=== PATIENT | male | born 1945 | race Caucasian/White ===

== ENCOUNTER 2017-01-17 08:55 | Day surgery (SDC) | payer OTHER, MEDICARE ==
[2017-01-17] MEDS ORDERED: LIDOCAINE 1% 300 MG/30 ML SDV ONE (09:39)
[2017-01-17] MEDS ORDERED: LIDOCAINE 1% 300 MG/30 ML SDV IF ONE (09:45)
--- NOTE | 2017-01-17 11:46 | CPIP ---
[f rep st] INVASIVE CARDIAC PROCEDURE DATE OF PROCEDURE: 01/17/2017 PROCEDURE PERFORMED: Implantable loop recorder. INDICATION FOR PROCEDURE: Idiopathic CVA. PROCEDURE: After informed consent was obtained, the patient was brought to the cardiovascular [facility] suite. The 5th intercostal space, 2 cm left side from midline was marked for appropriate inser tion site. He was prepped and draped in a sterile fashion. Using 1% lidocaine, the surgical site w as anesthetized locally. Incision was made in the skin. The loop recorder device was tunneled unde r the skin with appropriate tract. Device was placed subcutaneously without difficulty. He tolerat ed the procedure well. Hemostasis was achieved. Steri-Strips were applied. Sterile dressing with Tegaderm was applied. The device was interrogated postprocedure, demonstrating normally functioning device with excellent capture of P-waves. He had no postoperative complications. Postoperative instructions were reviewed with the patient. PLAN: 1. Patient will be discharged home. 2. Patient lives 6 hours away and will arrange for surgical site wound check in 1 week with his [facility] physician back home. 3. Patient's device will be programmed to send data to our office. /[id number]/MODL
== END 2017-01-17 11:00 | disposition home or self-care (01) ==
LOC: FCATH 08:55
PROVIDERS: ATTEND Internal Medicine Cardiovascular Disease
PROC: 0JH60PZ Insertion of Cardiac Rhythm Related Device into Chest Subcutaneous Tissue and Fascia, Open Approach (ICD-10-PCS; principal; 2017-01-17)
DX: I63.9 Cerebral infarction, unspecified (principal)
CPT/HCPCS: 33282; C1764

== ENCOUNTER → 2018-09-20 | Outpatient (CLI) | payer OTHER, MEDICARE | LOC: BHFA 08:30 | PROVIDERS: ATTEND Internal Medicine Cardiovascular Disease | DX: I34.0 Nonrheumatic mitral (valve) insufficiency (principal) ==

== ENCOUNTER 2018-11-25 07:56 | Day surgery (SDC) | payer OTHER, MEDICARE ==
[2018-11-25] MEDS ORDERED: DIAZEPAM 5 MG TAB PO ONE (07:57)
[2018-11-25] MEDS ORDERED: NS 1,000 ML IV ONE (07:57)
[2018-11-25] MEDS ORDERED: diphenhydrAMINE 25 MG CAP PO ONE (07:57)
[2018-11-25] MEDS ORDERED: FAMOTIDINE 20 MG TAB PO ONE (07:57)
[2018-11-25] MEDS ORDERED: ASPIRIN EC 325 MG TAB PO ONE (07:57)
[2018-11-25 08:31] LABS: PLATELET COUNT 222 10^3/uL (150-400)
[2018-11-25 08:40] LABS: INR 1.04 (0.83-1.16); PROTIME(PATIENT) 13.2 SEC (12.0-15.0)
--- NOTE | 2018-11-25 09:29 | PDHPUP ---
History & Physical Update H&P update statement: This history and physical update is based on an assessment of the patient which was completed after admission or registration (within 24 hours), but prior to the surgery/procedure.73 year old male who presents for pre op LHC in anticipation of minimally invasive, robotic assisted mitral valve repair with Dr. Rowley on Sunday in the setting of MVP and severe MR. Risks and benefits of LHC discussed in detail. H&P update: H&P reviewed & patient examined, no change in patient's condition since H&P completed
--- NOTE | 2018-11-25 09:30 | PDPROPOC ---
Sedation Plan of Care Sedation Plan of Care: mental status noted, patient educated of risks, benefits , alternatives, patient can tolerate sedation ASA Classification: ASA 2 Planned drugs: fentanyl, midazolam Mallampati Score: Class 2 Mallampati Reference Image: Patient passed 3-3-2 rule?: Yes
[2018-11-25] MEDS ORDERED: fentaNYL 100 MCG/2 ML INJ ONE (09:33)
[2018-11-25] MEDS ORDERED: MIDAZOLAM 2 MG/2 ML VIAL ONE (09:33)
[2018-11-25] MEDS ORDERED: IOPAMIDOL (ISOVUE-370) 150 ML BTL IV ONE (09:33)
[2018-11-25] MEDS ORDERED: LIDOCAINE 1% 300 MG/30 ML SDV ONE (09:33)
[2018-11-25] MEDS ORDERED: NITROGLYCERIN 0.4 MG BTL SL PRN (11:25)
[2018-11-25] MEDS ORDERED: HYDROCODONE/APAP 5/325 TAB PO PRN (11:25)
[2018-11-25] MEDS ORDERED: ATROPINE SULFATE 1 MG/10 ML SYR IVP PRN (11:25)
[2018-11-25] MEDS ORDERED: ONDANSETRON 4 MG/2 ML VIAL IVP PRN (11:25)
[2018-11-25] MEDS ORDERED: OXYCODONE/APAP 5/325 TAB PO PRN (11:25)
[2018-11-25] MEDS ORDERED: NS 1,000 ML IV SCH (11:30)
--- NOTE | 2018-11-25 12:03 | CPIP ---
[f rep st] INVASIVE CARDIAC PROCEDURE DATE OF PROCEDURE: 11/25/2018 PROCEDURE PERFORMED: Diagnostic left heart catheterization. INDICATION FOR PROCEDURE: Preoperative left heart catheterization in anticipation of minimally invas sindi lateral thoracotomy and mitral valve repair with Dr. Rowley scheduled for this coming Sunday. DESCRIPTION OF PROCEDURE: After informed consent was obtained for diagnostic left heart catheterizat ion and possible percutaneous coronary intervention, the patient was brought to the cardiac catheteri zation lab where he was prepped and draped in sterile fashion. Using 1% lidocaine, the right groin w as anesthetized. Using the micropuncture and modified Seldinger technique, 6-Swiss catheter was placed into the right common femoral artery without complications. A JL4 catheter was attempted to cannulate left main un successfully. Multiple catheters were used including JL3.5, JL4.5, JL5, an AL1 catheter. Ultimately, left main was cannulated with an AL1 and demonstrating anomalous left coronary artery com ing off the origin of the right coronary artery. AL1 catheter was exchanged over a guidewire for a JR4 catheter. JR4 catheter was used to take images of the right coronary anatomy in multiple projections. The JR4 catheter was removed over a guidewir e. Angled pigtail catheter was used to cross the aortic valve. Left ventriculogram was performed. LVEDP was assessed. Aortic valve gradient was assessed on pull-back. FINDINGS: 1. 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 There is no evidence of cor onary disease within the left main. There is some ostial narrowing of what would be the circumflex v essel of approximately 30% to 40%. Some mild luminal irregularities in the proximal LAD. 2. The right coronary artery is a large caliber dominant vessel. There is a 70% to 80% narrowing in the proximal right coronary artery. CONCLUSIONS: 1. 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 2. Non-flow limiting coronary disease within the anomalous left coronary system. 3. Single-vessel disease within the dominant right coronary artery of 70% to 80% proximal stenosis. PLAN: Plan for CT-A of the coronary arteries to determine the route of anomalous left main. Dependi ng on whether left main courses between the pulmonary artery and the aorta, will guide further manage ment. /[id number]/MODL
[2018-11-25] MEDS ORDERED: SODIUM CL NASAL 45 ML BTL EACHNARE PRN (14:51)
--- NOTE | 2018-11-25 16:18 | CPEKG ---
Test Reason : OPEN Blood Pressure : / mmHG Vent. Rate : 080 BPM Atrial Rate : 078 BPM P-R Int : 174 ms QRS Dur : 092 ms QT Int : 372 ms P-R-T Axes : 072 026 072 degrees QTc Int : 430 ms Sinus rhythm Left ventricular hypertrophy Confirmed by Hellen Bains ([id number]) on 11/25/2018 4:18:06 PM Referred By: Reed Kwan Confirmed By:Hellen Bains
== END 2018-11-25 18:25 | disposition home or self-care (01) ==
LOC: FCATH 07:56
PROVIDERS: ATTEND Internal Medicine Cardiovascular Disease
PROC: B2151ZZ Fluoroscopy of Left Heart using Low Osmolar Contrast (ICD-10-PCS; principal; 2018-11-25)
PROC: 4A023N7 Measurement of Cardiac Sampling and Pressure, Left Heart, Percutaneous Approach (ICD-10-PCS; principal; 2018-11-25)
PROC: B2111ZZ Fluoroscopy of Multiple Coronary Arteries using Low Osmolar Contrast (ICD-10-PCS; principal; 2018-11-25)
DX: Z01.810 Encounter for preprocedural cardiovascular examination (principal); I34.2 Nonrheumatic mitral (valve) stenosis; I34.0 Nonrheumatic mitral (valve) insufficiency; I25.10 Atherosclerotic heart disease of native coronary artery without angina pectoris; I77.9 Disorder of arteries and arterioles, unspecified; I27.20 Pulmonary hypertension, unspecified; Z86.73 Personal history of transient ischemic attack (TIA), and cerebral infarction without residual deficits; I42.8 Other cardiomyopathies
CPT/HCPCS: J1644; J2250; J3010; Q9967

== ENCOUNTER → 2018-11-26 | Outpatient (CLI) | payer OTHER, MEDICARE ==
[~2018-11-26] MED LIST: IOPAMIDOL (ISOVUE-370) 150 ML BTL IV ONE; NITROGLYCERIN 0.4 MG BTL SL ONE
== END ==
LOC: FIMAGING 07:00
PROVIDERS: ATTEND Internal Medicine Cardiovascular Disease
DX: I25.10 Atherosclerotic heart disease of native coronary artery without angina pectoris (principal); Q24.5 Malformation of coronary vessels
CPT/HCPCS: 75574; Q9967

== ENCOUNTER 2018-11-29 10:00 | Inpatient (IN) | payer OTHER, MEDICARE ==
--- NOTE | 2018-12-16 15:35 | PDANEPAE ---
ANE History of Present Illness MR ANE Past Medical History - Cardiovascular History Hx Hypertension: Yes Hx Arrhythmias: Yes Hx Chest Pain: No Hx Coronary Artery / Peripheral Vascular Disease: Yes Hx CHF / Valvular Disease: Yes Hx Palpitations: No Cardiovascular History Comment: CAD. dyslipidemia. mitral regurgitation. mitral valve prolapse. vtach. pst. followed by [facility] - Pulmonary History Hx COPD: No Hx Asthma/Reactive Airway Disease: No Hx Recent Upper Respiratory Infection: No Hx Oxygen in Use at Home: No Hx Sleep Apnea: No Sleep Apnea Screening Result - Last Documented: Positive Pulmonary History Comment: james triggers - Neurologic History Hx Cerebrovascular Accident: No Hx Seizures: No Hx Dementia: No Neurologic History Comment: occipital stroke 02/2016 - Endocrine History Hx Diabetes: No Hypothyroid: No Hyperthyroid: No Obesity: no - Renal History Hx Renal Disorders: No - Liver History Hx Hepatic Disorders: No - Neurological & Psychiatric Hx Hx Neurological and Psychiatric Disorders: No - Cancer History Hx Cancer: No - Congenital Disorder History Hx Congenital Disorders: No - GI History GERD: no Hx Gastrointestinal Disorders: No - Other Health History Other Health History: wears glasses - Chronic Pain History Chronic Pain: No - Surgical History Prior Surgeries: 01/17/2017 loop recorder placed ANE Review of Systems Review of systems is: negative Review of Systems: - Exercise capacity METS (RN): 5 METS ANE Patient History - Allergies Allergies/Adverse Reactions: No Known Allergies Allergy (Verified 11/18/18 09:33) - Home Medications Home medications: home medication list seen and reviewed Home Medications: Aspirin [Aspirin 81mg (*)] 81 mg PO DAILY 01/17/17 [Last Taken 11/23/18] Atorvastatin Calcium [Lipitor 40 mg (*)] 40 mg PO DAILY 11/13/18 [Last Taken ] Metoprolol Succinate Xr [Toprol Xl 25 mg (*)] 25 mg PO DAILY 11/13/18 [Last Taken 11/24/18] - NPO status NPO Status: no food or drink >8 hours - Anes Hx Anes Hx: no prior problems - Smoking Hx Smoking Status: Former smoker - Family Anes Hx Family Anes Hx: none Family Hx Anesthesia Complications: none ANE Labs/Vital Signs - Vital Signs Height: 182.88 cm Weight: 74.8 kg ANE Physical Exam - Airway Neck exam: FROM Mallampati Score: Class 2 Mouth exam: normal dental/mouth exam - Pulmonary Pulmonary: no respiratory distress, clear to auscultation - Cardiovascular Cardiovascular: regular rate and rhythym, no murmur, rub, or gallop - ASA Status ASA Status: IV ANE Anesthesia Plan Anesthesia Plan: general endotracheal anesthesia Lines/Monitors: arterial line, central line, TAWANDA Specialized Airway: double lumen tube
[2018-12-17] MEDS ORDERED: DOBUTamine/DEXTROSE 250 ML IV ONE (06:00)
[2018-12-17] MEDS ORDERED: NOREPINEPHRINE BITARTRATE 16 MG in NS 250 ML IV ONE (06:00)
[2018-12-17] MEDS ORDERED: CARDIOPLEGIC SOLUTION 1,052.8 ML PF ONE (06:00)
[2018-12-17] MEDS ORDERED: INSULIN REGULAR HUMAN 100 UNIT in NS 100 ML IV ONE (06:00)
[2018-12-17] MEDS ORDERED: MANNITOL 25% 12.5 GM/50 ML VIAL IVP ONE (06:00)
[2018-12-17] MEDS ORDERED: PHENYLEPHRINE HCL 50 MG in NS 250 ML IV ONE (06:00)
[2018-12-17] MEDS ORDERED: LIDOCAINE 1% 2 ML INJ ID PRN (06:02)
[2018-12-17] MEDS ORDERED: niCARdipine/NACL 200 ML IV ONE (06:02)
[2018-12-17] MEDS ORDERED: AMINOCAPROIC ACID 5 GM/20 ML VIAL IV ONE (06:02)
[2018-12-17] MEDS ORDERED: ceFAZolin 2 GM/DEXTROSE 100 ML IV ONE (06:02)
[2018-12-17] MEDS ORDERED: CITRATE DEXTROSE SOLN 500 ML BAG MISC ONE (06:02)
[2018-12-17] MEDS ORDERED: LR 1,000 ML IV ONE (06:03)
[2018-12-17] MEDS ORDERED: CALCIUM CHLORIDE 1 GM/10 ML INJ ONE ×3 (06:30→06:37)
[2018-12-17] MEDS ORDERED: PROTAMINE SULFATE 50 MG/5 ML VIAL IVP ONE (06:33)
[2018-12-17] MEDS ORDERED: MILRINONE/DEXTROSE/100 ML BAG IV ONE (06:34)
[2018-12-17] MEDS: MUPIROCIN 2% 22 GM OINT NS SCH ×3 (06:34→21:01)
[2018-12-17] MEDS ORDERED: AMINOCAPROIC ACID 5 GM/20 ML VIAL ONE ×2 (06:34→06:38)
[2018-12-17] MEDS ORDERED: niCARdipine/NACL/200 ML BAG IV ONE (06:35)
[2018-12-17] MEDS ORDERED: NA BICARBONATE 50 MEQ/50 ML VIAL ONE ×3 (06:35→14:47)
[2018-12-17] MEDS ORDERED: HEPARIN 10,000 UNIT/10 ML MDV (1,000 UNIT/ML) ONE ×5 (06:35→07:13)
[2018-12-17] MEDS ORDERED: DOPamine/DEXTROSE 400 MG/250 ML BAG IV ONE (06:36)
[2018-12-17] MEDS ORDERED: AMIODARONE HCL 150 MG/3 ML VIAL ONE ×2 (06:36→06:39)
[2018-12-17] MEDS ORDERED: ceFAZolin 1 GM VIAL ONE (06:36)
[2018-12-17] MEDS ORDERED: ADENOSINE 6 MG/2 ML VIAL ONE (06:36)
[2018-12-17] MEDS ORDERED: ALBUMIN 5% 250 ML BOTTLE IV ONE (06:37)
[2018-12-17] MEDS ORDERED: NITROGLYCERIN/D5W 50 MG/250 ML BOTTLE IV ONE (06:37)
[2018-12-17] MEDS ORDERED: LIDOCAINE 2% 100 MG/5 ML SYR ONE (06:38)
[2018-12-17] MEDS ORDERED: CITRATE DEXTROSE SOLN 500 ML BAG ONE (06:38)
[2018-12-17] MEDS ORDERED: MAGNESIUM SULFATE 1 GM/2 ML VIAL ONE (06:39)
[2018-12-17] MEDS ORDERED: methylPREDNISolone SOD SUCC 1 GM/8 ML VIAL ONE (06:39)
--- NOTE | 2018-12-17 06:54 | PDGENHP ---
History and Physical - Chief Complaint elective cardiac surgery - History of Present Illness This is a pleasant 73M with severe MR, LAE, pHTN, and LV dilatation who presents today for elective MVR/R. He previously was evaluated by Dr. Rowley in clinic on 11/05/18. Since then, he underwent a cardiac catheterization which demonstrated anomalous left coronary system and single-vessel CAD within the dominant RCA at 70%-80%. As stated before, he had a cryptogenic CVA with residual visual deficits. Requires glasses to read. [place] No unexpected illnesses, hospitalizations, or other changes to his health since being seen in October. History Information - Allergies/Home Medication List Allergies/Adverse Reactions: No Known Allergies Allergy (Verified 11/18/18 09:33) Home Medications: Aspirin [Aspirin 81mg (*)] 81 mg PO DAILY 01/17/17 [Last Taken 12/16/18] Atorvastatin Calcium [Lipitor 40 mg (*)] 40 mg PO DAILY 11/13/18 [Last Taken 01/29] Metoprolol Succinate Xr [Toprol Xl 25 mg (*)] 25 mg PO DAILY 11/13/18 [Last Taken 11/24/18] I have personally reviewed and updated: family history, medical history, social history, surgical history - Past Medical History coronary artery disease, CVA - Surgical History Reports: no pertinent surgical hx - Social History Smoking Status: Former smoker Alcohol Use: Occasionally Review of Systems Review of Systems: ROS: 2-9 pt reviewed & negative except for what was stated in HPI & below Physical Exam Physical Exam: Temp Pulse Resp BP Pulse Ox 36.7 C 64 18 115/62 95 12/17/18 06:14 12/17/18 06:14 12/17/18 06:14 12/17/18 06:14 12/17/18 06:14 Constitutional: no apparent distress, appears nourished Eyes: icteric sclera, pale conjunctiva Ears, Nose, Mouth, Throat: moist mucous membranes, hearing normal, ears appear normal Cardiovascular: regular rate and rhythym, systolic murmur Respiratory: no respiratory distress, no rales or rhonchi Gastrointestinal: soft, non-tender abdomen Skin: warm, normal color Neurologic: AAOx3 Psychiatric: interacting appropriately Lab Data & Imaging Review Imaging Review: [facility] 11/25/18 FINDINGS: 1. 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 There is no evidence of coronary disease within the left main. There is some ostial narrowing of what would be the circumflex vessel of approximately 30% to 40%. Some mild luminal irregularities in the proximal LAD. 2. The right coronary artery is a large caliber dominant vessel. There is a 70 % to 80% narrowing in the proximal right coronary artery. CARDIAC CT 11/26/18 Impression: 1. Anomalous coronary artery system with single coronary artery supply off the right anterior cusp. 2. Moderate to severe stenosis proximal to mid RCA secondary to noncalcified hypodense at risk plaque measuring about 70-75%. 3. 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 4. Mild calcified plaque proximal diagonal branches without significant stenosis. All measurements of stenoses are based on NASCET criteria. CUS 11/25/18 No evidence of flow-limiting carotid stenosis CXR 11/25/18 WNL TTE 09/20/18 Mild aortic valve regurgitation is present. Moderate tricuspid regurgitation is present. Right Ventricular systolic pressure is measured at 53 mmHg. Normal global systolic LV function. EF is 66 %. No regional wall motion abnormality. Normal diastolic LV function. The left atrium is moderately dilated. The right atrium is mildly dilated. There is mild thickening of the mitral valve leaflets. Mild mitral annular calcification. There is severe prolapse of the posterior leaflet of the mitral valve. Severe mitral valve regurgitation is present. There is flow reversal in the pulmonary veins consistent with significant mitral regurgitation. 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 Kwan
[2018-12-17] MEDS ORDERED: LIDOCAINE 2% 5 ML SDV ONE (07:12)
[2018-12-17] MEDS ORDERED: fentaNYL 250 MCG/5 ML INJ ONE (07:12)
[2018-12-17] MEDS ORDERED: ROCURONIUM 100 MG/10 ML VIAL ONE (07:12)
[2018-12-17] MEDS ORDERED: PROPOFOL/EMULSION 500 MG/50 ML BOTTLE IV ONE (07:12)
[2018-12-17] MEDS ORDERED: ROCURONIUM 50 MG/5 ML VIAL ONE (09:37)
[2018-12-17] MEDS ORDERED: PHENYLEPHRINE HCL 100 MCG/ML SYR ONE (11:49)
[2018-12-17] MEDS ORDERED: NALOXONE HCL 0.4 MG/ML INJ IVP PRN (11:57)
[2018-12-17] MEDS ORDERED: PHENYLEPHRINE HCL 100 MCG/ML SYR IVP PRN (12:08)
[2018-12-17] MEDS ORDERED: fentaNYL 100 MCG/2 ML INJ IVP PRN ×2 (12:08→12:30)
[2018-12-17] MEDS ORDERED: DIAZEPAM 10 MG/2 ML SYR IVP PRN (12:08)
[2018-12-17] MEDS ORDERED: epHEDrine SULFATE 10 MG/ML SYR IVP PRN (12:08)
--- NOTE | 2018-12-17 12:11 | POSTANESTH ---
Post Anesthetic Evaluation Cardiovascular Status: Normal, Stable Respiratory Status: Normal, Stable, Requires Airway Assist Level of Consciousness/Mental Status: Unconscious Pain Control: Adequate, Prn Tx Ordered Nausea/Vomiting Control: Adequate, Prn Tx Ordered Complications Possibly Related to Anesthesia: None Noted
[2018-12-17] MEDS ORDERED: ONDANSETRON 4 MG/2 ML VIAL ONE (12:14)
--- NOTE | 2018-12-17 12:26 | POSTOPPROG ---
Post Op Note Date of Operation: 12/17/18 Surgeon: Rom Rowley Assistant: Tyrell Solorzano PAC Anesthesiologist: Katelynn Anesthesia: GET(General Endotracheal) Pre-op Diagnosis: severe MR Post-op Diagnosis: same Procedure: robotic assisted MVRepair (p2 resection, leaflet plasty, annuloplasty 28mm) Findings: P2 torn Inf/Abcess present in the surg proc area at time of surgery?: No Depth: Organ Space EBL: 100-500 Drains: Other (Right chest tube to -20 suction) Specimen(s): p2 of mitral valve
[2018-12-17] MEDS ORDERED: PANTOPRAZOLE SODIUM 40 MG VIAL IVP ONE (12:30)
[2018-12-17] MEDS ORDERED: LACTULOSE 20 GM/30 ML UDCUP PO PRN (12:30)
[2018-12-17] MEDS ORDERED: MAGNESIUM HYDROXIDE 30 ML UDCUP PO PRN (12:30)
[2018-12-17] MEDS ORDERED: ACETAMINOPHEN 325 MG TAB PO PRN (12:30)
[2018-12-17] MEDS ORDERED: ALBUMIN 5% 250 ML IV PRN (12:30)
[2018-12-17] MEDS ORDERED: INSULIN REGULAR HUMAN 100 UNIT in NS 100 ML IV SCH (12:30)
[2018-12-17] MEDS ORDERED: NOREPINEPHRINE BITARTRATE 16 MG in NS 250 ML IV SCH (12:30)
[2018-12-17] MEDS ORDERED: HYDROCODONE/APAP 5/325 TAB PO PRN (12:30)
[2018-12-17] MEDS ORDERED: BISACODYL 10 MG SUPP PR PRN (12:30)
[2018-12-17] MEDS ORDERED: ONDANSETRON DISINTEGRATING 4 MG TAB PO PRN (12:30)
[2018-12-17] MEDS ORDERED: METOCLOPRAMIDE 10 MG/2 ML VIAL IVP PRN (12:30)
[2018-12-17] MEDS ORDERED: D50W 25 GM/50 ML SYR IVP PRN (12:30)
[2018-12-17] MEDS ORDERED: POLYETHYLENE GLYCOL 3350 17 GM PKT PO PRN (12:30)
[2018-12-17] MEDS ORDERED: ONDANSETRON 4 MG/2 ML VIAL IVP PRN (12:30)
[2018-12-17] MEDS ORDERED: MEPERIDINE 25 MG/0.5 ML AMP IVP PRN (12:30)
[2018-12-17] MEDS ORDERED: NS 1,000 ML IV SCH (12:30)
[2018-12-17] MEDS ORDERED: SODIUM CL NASAL 45 ML BTL EACHNARE PRN (12:30)
[2018-12-17] MEDS ORDERED: ACETAMINOPHEN 650 MG SUPP PR PRN (12:30)
[2018-12-17] MEDS ORDERED: POTASSIUM Cl (KCl) 50 ML IV PRN (12:30)
[2018-12-17] MEDS ORDERED: PROPOFOL/EMULSION 100 ML IV SCH (13:30)
--- NOTE | 2018-12-17 13:49 | PDMN ---
Medical Necessity Medical necessity: [facility] IP only surgery; cpt 54361 MVR
[2018-12-17] MEDS: ceFAZolin 2 GM/DEXTROSE 100 ML IV SCH ×2 (14:16→21:57)
--- NOTE | 2018-12-17 16:43 | CPEKG ---
Test Reason : OPEN Blood Pressure : / mmHG Vent. Rate : 061 BPM Atrial Rate : 061 BPM P-R Int : 208 ms QRS Dur : 079 ms QT Int : 431 ms P-R-T Axes : 026 003 036 degrees QTc Int : 434 ms Sinus rhythm Abnormal R-wave progression, early transition Confirmed by Gus Greer ([id number]) on 12/17/2018 4:42:37 PM Referred By: Rom Rowley Confirmed By:Gus Greer
--- NOTE | 2018-12-17 17:23 | GCON ---
[f rep st] CONSULTATION PULMONARY/CRITICAL CARE CONSULTATION DATE OF CONSULTATION: 12/17/2018 REFERRING PHYSICIAN: Rom Rowley MD REASON FOR REFERRAL: Evaluation and management of respiratory failure, pulmonary hypertension, and h ypotension. HISTORY: The patient is a 73-year-old male with a history of severe MR with left atrial enlargement and pulmonary hypertension along with LV dilation, who underwent an elective robotic MVR repair today . Preoperatively, he had a cardiac catheterization, which demonstrated an anomalous left coronary ar sarkis system single-vessel CAD in a dominant RCA, with a 70% to 80% stenosis. It was elected to proce ed with surgery, with stenting postoperatively. His intraoperative course was unremarkable. He was hypotensive on arrival in the ICU, with a systolic blood pressure in the 70s. He was intubated at th e time of initial evaluation postoperatively. PAST MEDICAL HISTORY: 1. CVA. The patient has residual right visual field cut. 2. Coronary artery disease. 3. Pulmonary hypertension. MEDICATIONS AT TIME OF ADMISSION: Include aspirin, atorvastatin, and metoprolol. SOCIAL HISTORY: The patient is a former smoker. He drinks alcohol occasionally. He lives in the [facility]. FAMILY HISTORY: Unremarkable. REVIEW OF SYSTEMS: Unobtainable. PHYSICAL EXAMINATION: GENERAL: The patient is intubated and sedated. VITAL SIGNS: Systolic blood pressure is in the 70s on initial presentation. Heart rate is 80. His temperature is 36 degrees. C [employer]ER is 3, and pulmonary artery pressures are 36/12. HEENT: Normocephalic and atraumatic. Eyes with no icterus. NECK: No JVD. Trachea is midline. CHEST: Clear to auscultation. CARDIAC: Regular r ate and rhythm without murmur. ABDOMEN: Soft and nontender. Bowel sounds are present. EXTREMITIES : No clubbing, cyanosis, or edema. NEUROLOGICAL: The patient is intubated and sedated. LABORATORY: Chemistry group is unremarkable. Glucose is 127. Lactic acid is 1.7. Hemoglobin is 12 .9. Blood gas shows a pH of 7.32 with a pO2 of 123, a CO2 of 43, and a bicarbonate of 22 on 100% oxy gen. A chest x-ray shows some borderline cardiomegaly with some atelectasis in both bases. The endo tracheal tube is appropriately placed. Images are reviewed by me. ASSESSMENT: 1. Status post mitral valve repair. The patient's intraoperative course and repair were unremarkabl e. 2. Hypotension. This is likely due to hypovolemia and vasoplegia, with a low central venous pressur e. The patient is currently receiving blood products and albumin, and received a small dose of pheny lephrine by Anesthesiology at the bedside. 3. Pulmonary hypertension. The patient has a history of pulmonary hypertension, but this is likely due to the patient's mitral valve disease. His pulmonary artery pressures are normal here postoperat ively, although he is somewhat hypotensive. 4. Coronary artery disease. The patient has a 70% to 80% right coronary artery lesion. We anticipa te that this will be stented postoperatively. 5. History of a cerebrovascular accident. RECOMMENDATIONS: 1. Use norepinephrine to help maintain blood pressure. Fluids will be given until the blood pressur e improves, as long as the CVP remains less than 8. 2. Wean and extubate per protocol. /[id number]/MODL
[2018-12-18 04:13] LABS: PLATELET COUNT 106 10^3/uL (150-400)
[2018-12-18] MEDS: ceFAZolin 2 GM/DEXTROSE 100 ML IV SCH ×3 (05:53→21:30)
--- NOTE | 2018-12-18 08:01 | SOAPPROG ---
SOAP Progress Note Assessment/Plan: POD #1 s/p robotic-assisted MVRepair (28mm annuloplasty ring, p2 resection, sliding leaflet plasty) Myxomatous severe mitral valve regurgitation s/p MVRepair -Norepi immediately postop for vasoplegia -pre-op EF 65% w LAE/pHTN/LV dilatation and moderate TR -anticoagulation with full dose ASA alone -routine TTE after addressing RCA lesion Single vessel right coronary artery disease w anomalous left coronary artery - planned intervention this hospitalization with Dr. Kwan/Dr. 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 Minimal pain. Objective: GEN: NAD, lying in bed HEENT: NCAT, MMM Cardiac: s1s2, no m/r/g Resp: CTAB, no wheezes Extremities: trace edema Vital Signs Temp Pulse Resp BP Pulse Ox 37.2 C 72 20 128/48 H 92 12/18/18 07:23 12/18/18 07:23 12/18/18 07:23 12/18/18 07:23 12/18/18 07:23 Laboratory Results 12/18/18 04:05 12/18/18 04:05 12/17/18 12/18/18 12/19/18 05:59 05:59 05:59 Intake Total 2597 Output Total 1340 Balance 1257 CXR - WNL ICD10 Worksheet Patient Problems: Problems Problem Status Onset Acute blood loss anemia Acute S/P MVR (mitral valve repair) Acute Anomalous origin of left coronary artery Chronic CAD in barrow artery Chronic Dyslipidemia Chronic History of stroke Chronic Myxomatous mitral valve regurgitation Chronic
[2018-12-18] MEDS ORDERED: traMADol 50 MG TAB PO PRN (08:41)
[2018-12-18] MEDS ORDERED: ASPIRIN 81 MG CHEWABLE TAB PO SCH (09:00)
[2018-12-18] MEDS: MUPIROCIN 2% 22 GM OINT NS SCH ×2 (09:17→20:35)
[2018-12-18] MEDS: METOPROLOL TARTRATE 25 MG TAB PO SCH ×2 (09:17→20:34)
[2018-12-18] MEDS: CEPACOL LOZENGE PO PRN ×2 (10:22→19:09)
[2018-12-18] MEDS: PANTOPRAZOLE SODIUM 40 MG TAB PO SCH (12:04)
[2018-12-18] MEDS: ASPIRIN 81 MG CHEWABLE TAB PO SCH (12:04)
--- NOTE | 2018-12-18 17:11 | GOP ---
[f rep st] OPERATIVE REPORT DATE OF OPERATION: 12/17/2018 SURGEON: Rom Rowley MD HEAD WAITER/WAITRESS: Clemencia Gomez PREOPERATIVE DIAGNOSIS: Severe mitral regurgitation. POSTOPERATIVE DIAGNOSIS: Severe mitral regurgitation. PROCEDURE PERFORMED: Robotic assisted mitral valve repair with resection of the P2 portion of the po sterior leaflet, reconstruction and annuloplasty with a 28 mm Physio Ring. FINDINGS: The pericardial space was free. The aorta was soft. There were multiple torn cords to a large P2 segment of the posterior leaflet. The anterior leaflet was normal. INDICATIONS: This 73-year-old gentleman has been experiencing progressive exercise intolerance and o n examination was found to have a heart murmur. This prompted echocardiography revealing severe mitr al regurgitation. Left ventricular function is moderately reduced. The ventricle is slightly dilate d, and coronary angiography reveals a 70% right coronary lesion. He was recommended to undergo rafi l valve repair. It is anticipated in the postoperative period he will undergo a stent placement of t he right coronary artery. We elected to do this postoperatively to avoid the attendant risk of bleed ing associated with antiplatelet therapy for a stent. DESCRIPTION OF PROCEDURE: Patient was taken to the operating room, placed on the operating table in supine position. After induction of general anesthesia and double-lumen endotracheal tube intubation , patient was prepped and draped sterilely. A transesophageal echo probe was also placed. The patie nt was positioned with the right chest partially elevated. We began by cutting down and exposing the right common femoral artery and vein. We also opened a small utility incision about 4 cm in length in the 4th interspace on the right chest. Once this utility port had been created, we then placed th e 3 arms for the robot through the chest wall and then accessed the right subclavian vein with a need le and a wire. At this point, the patient was heparinized. We placed a 17 mm Bio-Medicus cannula th rough the right subclavian vein into the superior vena cava, and this was sutured into place and used for superior vena cava drainage. In the groin then, we sewed an 8 mm cannula graft end-to-side to t he right common femoral artery, and a pursestring was placed in the right common femoral vein. We th en over a wire placed a long venous cannula into the right atrium. At this point, the robotic system was brought up onto the field and docked. Cardiopulmonary bypass was instituted. The pericardium w as opened. Antegrade cardioplegia catheter was placed. Next, the transthoracic cross-clamp was applied, and the heart was arrested with 1 L of [place] solu tion. There was excellent and prompt arrest. The left atrium was then opened, and the valve was ins pected. The left atrium was noted to be rather enlarged. The posterior leaflet as described above. We then did a triangular resection of the posterior leaflet and reconstructed it with a 4-0 [place] suture. The ring was sized to a 28 mm ring. Sutures were placed around the anulus, and the ring was seated without difficulty. The left atrium was then closed, and the cross-clamp was removed. A 28- Belarusian chest tube was placed on the right side. The patient was from cardiopulmonary bypas s without difficulty, and the post pump transesophageal echo reveals no residual mitral regurgitation . The protamine was administered, and the patient was decannulated. The artery was repaired with a small residual piece of [place] on the top of the artery. The vein was repaired with a pursestring suture. Once hemostasis had been achieved and protamine had been administered, the ribs were reappro ximated with #1 pericostal sutures, and the subcutaneous musculature and skin were closed with runnin g Vicryl suture. The patient tolerated the procedure well. /[id number]/MODL
--- NOTE | 2018-12-18 17:38 | PDCARPN ---
Cardiology Progress Note Assessment/Plan: Patient underwent robotic mitral valve repair yesterday. Is recovering uneventfully except for some residual hoarseness. He has a high grade midRCA stenosis. Plan is for PCI tomorrow to complete his hybrid CV surgery/ interventional cardiology procedure. Discussed technical details/risks with the patient and his . Right radial approach will be used. 12/18/18 17:35 Subjective: Still hoarse after MV repair yesterday. Reviewed/Discussed With: family Objective: Vital Signs (8 Hrs) Temp Pulse Resp BP Pulse Ox 12/18/18 15:32 37.4 C 70 20 129/67 H 91 L 12/18/18 13:45 37.0 C 68 16 129/68 H 97 12/18/18 11:58 37.1 C 70 20 126/61 H 97 Intake/Output (24 Hrs) 12/17/18 12/18/18 12/19/18 05:59 05:59 05:59 Intake Total 2597 Output Total 1340 Balance 1257 Intake: Oral (ml) 500 IV Intake (ml) 1000 IV Infused (ml) 1097 Insulin Regular Human 100 21 unit In Ns 100 ml @ Per Protocol IV CONT LORRAINE Rx#: [id number] Norepinephrine Bitartrate 40 16 mg In Ns 250 ml @ As Directed IV CONT LORRAINE Rx#: [id number] Ns 1,000 ml @ 25 mls/hr 1036 IV CONT LORRAINE Rx#: [id number] Output: Urine (ml) 1010 Catheter 1010 Chest Tube Output (ml) 330 Right Pleural 330 Other: Weight 76.067 kg Result Diagrams: 12/18/18 04:05 12/18/18 04:05 - Physical Exam Constitutional: no apparent distress Eyes: anicteric sclera Ears, Nose, Mouth, Throat: moist mucous membranes Cardiovascular: regular rate and rhythm, no murmurs Respiratory: clear to auscultate bilat Gastrointestinal: normoactive bowel sounds, no tenderness, no masses Skin: no edema Neurologic: AAOx3 Psychiatric: not anxious ICD10 Worksheet Patient Problems: Problems Problem Status Onset Acute blood loss anemia Acute S/P MVR (mitral valve repair) Acute Anomalous origin of left coronary artery Chronic CAD in [place] artery Chronic Dyslipidemia Chronic History of stroke Chronic Myxomatous mitral valve regurgitation Chronic
[2018-12-18] MEDS: SENNOSIDES/DOCUSATE SODIUM TAB PO SCH (20:33)
[2018-12-19 03:53] LABS: PLATELET COUNT 97 10^3/uL (150-400)
[2018-12-19] MEDS ORDERED: diphenhydrAMINE 25 MG CAP PO ONE ×2 (06:00→09:30)
[2018-12-19] MEDS ORDERED: DIAZEPAM 5 MG TAB PO ONE ×2 (06:00→09:30)
[2018-12-19] MEDS ORDERED: FAMOTIDINE 20 MG TAB PO ONE ×2 (06:00→09:30)
--- NOTE | 2018-12-19 08:02 | SOAPPROG ---
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 Change BB to home Toprol starting tomorrow IV Diuresis today CT too much to pull Routine TTE tomorrow Anticipate discharge Sunday Subjective: No pain Objective: Vital Signs Temp Pulse Resp BP Pulse Ox 36.9 C 84 14 148/72 H 92 12/19/18 03:33 12/19/18 03:33 12/19/18 03:33 12/19/18 03:33 12/19/18 03:33 Laboratory Results 12/19/18 03:45 12/19/18 03:45 12/18/18 12/19/18 12/20/18 05:59 05:59 05:59 Intake Total 2597 340 Output Total 1340 1310 Balance 1257 -970 Objective: GEN: NAD, lying in bed HEENT: NCAT, MMM Cardiac: s1s2, no m/r/g Resp: CTAB, no wheezes Extremities: trace edema CT: light red, 460cc/24 hours ICD10 Worksheet Patient Problems: Problems Problem Status Onset Acute blood loss anemia Acute S/P MVR (mitral valve repair) Acute Anomalous origin of left coronary artery Chronic CAD in [place] artery Chronic Dyslipidemia Chronic History of stroke Chronic Myxomatous mitral valve regurgitation Chronic
[2018-12-19] MEDS ORDERED: FUROSEMIDE 40 MG/4 ML VIAL IVP ONE (08:27)
--- NOTE | 2018-12-19 08:59 | ASMTCMCOM ---
CM Note CM Note Notes: Patient admitted for MVR. He is POD #1. 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 He lives independently with his in [place]. They plan to return home, hopefully Sunday. He may need home O2 and some DME, which is going to obtain. No CM needs anticipated. Date Signed: 12/19/2018 08:58 AM Electronically Signed By:Janna Flores RN
[2018-12-19] MEDS: SENNOSIDES/DOCUSATE SODIUM TAB PO SCH ×2 (09:08→21:11)
[2018-12-19] MEDS: METOPROLOL TARTRATE 25 MG TAB PO SCH (09:18)
[2018-12-19] MEDS: MUPIROCIN 2% 22 GM OINT NS SCH (09:20)
[2018-12-19] MEDS: ASPIRIN 81 MG CHEWABLE TAB PO SCH (09:20)
[2018-12-19] MEDS: PANTOPRAZOLE SODIUM 40 MG TAB PO SCH (09:34)
[2018-12-19] MEDS ORDERED: LIDOCAINE 1% 300 MG/30 ML SDV ONE (10:51)
[2018-12-19] MEDS ORDERED: fentaNYL 100 MCG/2 ML INJ ONE (10:51)
[2018-12-19] MEDS ORDERED: MIDAZOLAM 2 MG/2 ML VIAL ONE (10:51)
[2018-12-19] MEDS ORDERED: HEPARIN 10,000 UNIT/10 ML MDV (1,000 UNIT/ML) ONE (10:52)
[2018-12-19] MEDS ORDERED: IOPAMIDOL (ISOVUE-370) 150 ML BTL IV ONE (10:52)
[2018-12-19] MEDS ORDERED: VERAPAMIL 5 MG/2 ML VIAL ONE (10:52)
[2018-12-19] MEDS ORDERED: CLOPIDOGREL BISULFATE 75 MG TAB ONE (11:02)
[2018-12-19] MEDS ORDERED: BIVALIRUDIN 250 MG/5 ML VIAL IV ONE (11:33)
[2018-12-19] MEDS ORDERED: ATROPINE SULFATE 1 MG/10 ML SYR IVP PRN (11:53)
[2018-12-19] MEDS ORDERED: TEMAZEPAM 15 MG CAP PO PRN (11:53)
[2018-12-19] MEDS ORDERED: NITROGLYCERIN 0.4 MG BTL SL PRN (11:53)
[2018-12-19] MEDS ORDERED: CLOPIDOGREL BISULFATE 75 MG TAB PO ONE (11:53)
--- NOTE | 2018-12-19 12:02 | PDDXCAT ---
Diagnostic Cath Note - . Date: 12/19/18 Publication Designer: Nolan Indication: other (High-grade mid-RCA lesion; now s/p robotic MV repair on 2018.) - Procedure Access: right wrist - Materials Left Heart Cath size: 6F Complications: None Estimated blood loss: <50ml Closure method: TR Band Assessment: Successful PCI of the proximal to mid RCA using a single drug coated stent. Intervention: The patient underwent robotic mitral valve repair earlier this week. His preoperative cardiac catheterization demonstrated a high-grade mid-RCA lesion. The left coronary system was anomalous but had no significant atherosclerosis and was not intra arterial between the aorta and pulmonary artery by CTA. He is now brought back for completion of his hybrid procedure with a PCI of the RCA. The patient received intravenous Angiomax. A 6 Wolof Hockey-Stick I guide catheter was advanced to the RCA ostium. Angiography revealed a complex, high- grade stenosis of at least 70% in the mid-RCA. There was moderate proximal disease. An Intuition guidewire was advanced to the distal RCA. Pre- dilatation of the target lesion was performed using a 3.0 x 12 mm Emerge balloon. A 4.0 x 32 mm Synergy stent was advanced and positioned in the proximal to mid-RCA. The stent was deployed at 18 atmospheres. Final angiography demonstrated 0% residual stenosis and TRE-III flow. Patient Problems: Problems Problem Status Onset Acute blood loss anemia Acute S/P MVR (mitral valve repair) Acute Anomalous origin of left coronary artery Chronic CAD in [place] artery Chronic Dyslipidemia Chronic History of stroke Chronic Myxomatous mitral valve regurgitation Chronic
--- NOTE | 2018-12-19 13:03 | CPEKG ---
Test Reason : OPEN Blood Pressure : / mmHG Vent. Rate : 073 BPM Atrial Rate : 073 BPM P-R Int : 189 ms QRS Dur : 084 ms QT Int : 410 ms P-R-T Axes : 260 -16 014 degrees QTc Int : 452 ms Sinus or ectopic atrial rhythm Abnormal R-wave progression, early transition Left ventricular hypertrophy Confirmed by Gus Greer ([id number]) on 12/19/2018 1:03:29 PM Referred By: Rom Rowley Confirmed By:Gus Greer
[2018-12-19] MEDS ORDERED: GUAIFENESIN/DM 10 ML UDCUP PO PRN (15:47)
[2018-12-19] MEDS ORDERED: METOPROLOL TARTRATE 25 MG TAB PO ONE (17:00)
[2018-12-19] MEDS ORDERED: KETOROLAC 15 MG/1 ML SDV IVP PRN (17:17)
--- NOTE | 2018-12-20 08:07 | SOAPPROG ---
SOAP Progress Note Assessment/Plan: Assessment: POD#3 robotic-assisted MVRepair (28mm annuloplasty ring, p2 resection, sliding leaflet plasty) PPD#1 Successful PCI of the proximal to mid RCA using a single drug coated stent. Myxomatous severe mitral valve regurgitation - Amenable to minimally invasive complex MVRepair - Antithrombotic prophylaxis with full dose ASA alone, pending stability of rhythm - Surveillance of secondary TR per cards Valvular cardiomyopathy with preserved LV systolic fx - Stable. No sig volume overload. BB and diuresis as tolerated. Single vessel CAD w anomalous left coronary artery - s/p hybrid revasc of RCA yest w ARMEN - Secondary prevention w BB/statin/DAPT Acute expected blood loss anemia w thrombocytopenia - Stable. No transfusions required. VTE prophylaxis with SCDs, DAPT Postoperative pharyngitis, hoarseness and dysphagia - s/p DL ETT and TAWANDA. - Appears to be resolving with soft diet and lozenges. - Precautionary modified barium swallow pending. History of cryptogenic stroke with residual visual deficit - Stable. No apparent exacerbation. History of paroxysmal SVT - Presence of LINQ - Postop rhythm sinus. AF prophylaxis with BB. Plan: NPO for VFSS this am Remove chest tube Cont Toprol XL 25 mg daily No further diuresis Baseline postop echo Dispo - Anticipate home without services tomorrow 12/20/18 08:03 Subjective: Feels well. Voice coming back, throat less sore, +BM. Light activity well tolerated. Hopeful for home tomorrow. Objective: Vital Signs Temp Pulse Resp BP Pulse Ox 36.5 C 91 20 128/67 H 91 L 12/20/18 04:00 12/20/18 04:00 12/20/18 04:00 12/20/18 04:00 12/20/18 04:00 Laboratory Results 12/19/18 03:45 12/19/18 03:45 12/19/18 12/20/18 12/21/18 05:59 05:59 05:59 Intake Total 340 0 Output Total 1310 2650 Balance -970 -2650 Holding SR 80s-90s. 4 beat NSVT last noc. Adequate BP control. Borderline suppl O2 req. Excellent diuresis yest. Now below admit wt. CTOP at removal criteria. Physical Exam - Physical Exam General Appearance: alert, no apparent distress Respiratory: lungs clear (grossly), other (rt CT to pleurovac, thin serosang drainage, no inducible air leak) Cardiac/Chest: regular rate, rhythm, other (rt thoracot, port sites and rt groin incision CDI) Abdomen: normal bowel sounds, non-tender, soft Skin: warm/dry Extremities: other (no visible edema; rt wrist LHC site CDI, CSM intact) ICD10 Worksheet Patient Problems: Problems Problem Status Onset Acute blood loss anemia Acute S/P MVR (mitral valve repair) Acute Anomalous origin of left coronary artery Chronic CAD in [place] artery Chronic Dyslipidemia Chronic History of stroke Chronic Myxomatous mitral valve regurgitation Chronic
[2018-12-20] MEDS ORDERED: SENNOSIDES/DOCUSATE SODIUM TAB PO PRN (09:00)
[2018-12-20] MEDS: CLOPIDOGREL BISULFATE 75 MG TAB PO SCH ×2 (12:00→13:49)
[2018-12-20] MEDS: ASPIRIN 325 MG TAB PO SCH ×2 (12:00→13:50)
[2018-12-20] MEDS: METOPROLOL SUCCINATE XR 25 MG TAB PO SCH ×2 (12:00→13:49)
[2018-12-20] MEDS: ATORVASTATIN CALCIUM 40 MG TAB PO SCH ×2 (12:00→13:49)
[2018-12-20] MEDS: PANTOPRAZOLE SODIUM 40 MG TAB PO SCH ×2 (12:01→13:49)
--- NOTE | 2018-12-20 13:26 | ECHO ---
[email or web address] [address] [address] Main: [phone] Echocardiography Examination Transthoracic Name: ELENITA PRATHER MR#: [id number] Study Date: 12/20/2018 Study Time: 08:13 AM Date of : 1945 Age: 73 year(s) Height: 182.9 cm (72 in.) Weight: 75.75 kg (167 lb.) BSA: 1.97 m2 Gender: Male Examination: Echo Contrast: Image Quality: Adequate Rhythm: Normal sinus rhythm Heart Rate: 76 bpm BP: 128 mmHg/67 mmHg Indication: S/P MICS P2 resection with 28mm annuloplasty ring Procedure Staff Referring Physician: Web Weaver: Joy Flores [facility] Reading Physician: Dane Blanco MD Requesting Provider: Ordering Physician: Tyrell Solorzano Indication: S/P MICS P2 resection with 28mm annuloplasty ring Measurements Chambers AV/MV Label Value Normal Value Label Value Normal Value LVOT Vmax 1.3 m/s (0.7m/s - 1.1m/s) AR PHT 0.51 s LVOTd 2.3 cm (1.9cm - 2.1cm) AR PHT 513 ms LVDd, 2D 4.5 cm (4.2cm - 5.9cm) AR Vmax 3.8 m/s LVDs, 2D 3.3 cm (2.1cm - 4cm) AV PGmax 7 mmHg IVSd, 2D 1.4 cm (0.6cm - 1.1cm) AV Vmax 1.28 m/s LVPWd, 2D 1.4 cm (0.6cm - 1cm) ANGEL (Vmax) 4.2 cm2 LVEF, BP 56 % (55% - 70%) MV E Vmax 0.92 m/s LVEF, 2D 53 % (54% - 74%) MV A Vmax 1.44 m/s RVDd, 2D 3.5 cm (1.9cm - 3.8cm) MV E/A 0.64 LA Volume, BP 80 ml (18ml - 58ml) MV DT 290 ms LAESV index, BP 40.6 ml/m2 MV VTI 46.1 cm RA Area 19.5 cm2 MV PGmax 11 mmHg Additional Vessels MV PGmean 4 mmHg Label Value Normal Value MV PHT 0.07 s AoAsc 3.6 cm MVA PHT 3.2 cm2 AoRoot, 2D 2.8 cm (1.4cm - 2.6cm) MV PHT 68 ms TV/PV Label Value Normal Value RA Pressure 5 mmHg Patient: ELENITA PRATHER Study Date: 12/20/2018 Page 1 of 3 08:13 AM RVSP 40 mmHg TR Pmax 35 mmHg TR Vmax 2.97 m/s PV PGmax 5 mmHg PV Vmax, Caliper 1.12 m/s (0.6m/s - 0.9m/s) Conclusions (1) Left ventricular systolic ejection fraction was normal (55-60%) - mild to moderate LVH - normal wall motion (2) Normal RV size and function (3) Mild biatrial dilation (4) Mitral valve status post annuloplasty ring with posterior leaflet fixed and thickened. Large, somewhat mobile echo density to the annulus of the mitral valve of uncertain etiology. This may be part of the ring structure, or thrombus. No MR was noted. Gradient through the valve is 4 mm Hg. There were no images from the OR for review (5) Trileaflet aortic valve with mild to moderate AI and no stenosis (6) Mild to moderate TR - RVSP was 40 mm Hg (7) Ascending aorta was 3.6 cm (8) No pericardial effusion (9) Consider repeat assessment of the mitral valve to determine if there are acute changes to the structure noted with either surface echo or TAWANDA Findings Left Ventricle: Left ventricle is normal in size. Normal global systolic left ventricular function. EF evaluated by EF (biplane Strauss's). The ejection fraction, measured by Simpsons method, is 56 %. EF range is estimated at 55 % - 60 %. There is mild to moderate concentric left ventricular hypertrophy. There are no regional wall motion abnormalities. Unable to assess Diastolic Dysfunction due to mitral valve or annular interference. Right Ventricle: Normal size right ventricle. Right ventricular systolic function is normal. Left Atrium: The left atrium is mildly dilated. Right Atrium: The right atrium is mildly dilated. Mitral Valve: S/P MICS P2 resection of posterior leaflet with 28mm annuloplasty ring.The posterior leaflet appears fixed and is thickened.There is an large, bright partially mobile echo density at annulus of the posterior leaflet which may be part of the physio ring.No mitral regurgitation noted.Mean gradient across the repaired mitral valve is 4mmHg which is normal. . Aortic Valve: The aortic valve is structurally normal and trileaflet. Mild to moderate aortic regurgitation is present. There is no aortic stenosis. Tricuspid Valve: Tricuspid valve leaflets are structurally normal. Mild to moderate tricuspid regurgitation. No tricuspid valve stenosis. Right Ventricular systolic pressure is measured at 40 mmHg. Pulmonary artery pressure is mildly increased. Pulmonic Valve: Pulmonic leaflets are structurally normal. Trivial pulmonic valve regurgitation is present. Aorta: The aortic root size in 2D measures 2.8 cm. The aortic root exhibits normal size. The ascending aorta measures 3.6 cm. Ascending aorta is normal in size. Aorta Measurements AoRoot, 2D is 2.8 cm. Patient: ELENITA PRATHER Study Date: 12/20/2018 Page 2 of 3 08:13 AM IVC: The inferior vena cava is normal in size and course. Pericardium: No pericardial effusion. Exam Details Procedure Ordered: Echo Procedure Status: Routine study Image Quality: Adequate Facility Location: Cardiac Echo 1 (No Signature Object) Patient: ELENITA PRATHER Study Date: 12/20/2018 Page 3 of 3 08:13 AM [id number]
--- NOTE | 2018-12-20 14:10 | PDCARPN ---
Cardiology Progress Note Assessment/Plan: Patient doing well. Uneventful PCI of the RCA yesterday. No issues at right radial access site. Went over the details of the procedure with the patient and his again today. Also discussed secondary prevention and 1-year course of dual anti-platelet therapy. Patient will follow up with Dr. Reed Kwan after he is released from postoperative CT surgery follow-up. 12/20/18 14:06 Subjective: No complaints. Reviewed/Discussed With: family Objective: Vital Signs (8 Hrs) Temp Pulse Resp BP Pulse Ox 12/20/18 12:00 36.8 C 91 18 120/65 93 12/20/18 08:00 36.6 C 81 18 135/70 H 93 Intake/Output (24 Hrs) 12/19/18 12/20/18 12/21/18 05:59 05:59 05:59 Intake Total 340 0 Output Total 1310 2650 Balance -970 -2650 Intake: Oral (ml) 200 0 IV Intake (ml) 30 IV Infused (ml) 110 ceFAZolin 2 GM/DEXTROSE 110 100 ml @ 200 mls/hr IV Q8HRS [facility] Rx#:[id number] Output: Urine (ml) 850 2450 Toilet 850 2450 Chest Tube Output (ml) 460 200 Right Pleural 460 200 Other: Weight 73.4 kg 69.5 kg Number of Voids Catheter 2 Toilet 1 Number of Stools Toilet 1 Result Diagrams: 12/19/18 03:45 12/19/18 03:45 - Physical Exam Constitutional: WDWN, no apparent distress Eyes: anicteric sclera Ears, Nose, Mouth, Throat: moist mucous membranes Cardiovascular: regular rate and rhythm, no murmurs Respiratory: clear to auscultate bilat Gastrointestinal: normoactive bowel sounds, no tenderness, no masses Skin: no rashes, no edema Neurologic: AAOx3 Psychiatric: not anxious ICD10 Worksheet Patient Problems: Problems Problem Status Onset Acute blood loss anemia Acute S/P MVR (mitral valve repair) Acute Anomalous origin of left coronary artery Chronic CAD in [place] artery Chronic Dyslipidemia Chronic History of stroke Chronic Myxomatous mitral valve regurgitation Chronic
[2018-12-21 05:34] VITALS: BP 129/66
--- NOTE | 2018-12-21 07:26 | SOAPPROG ---
SOAP Progress Note Assessment/Plan: POD #4: robotic-assisted MV repair (28mm annuloplasty ring, p2 resection, sliding leaflet plasty) POD #2: PCI of the proximal to mid RCA using a single drug coated stent. Myxomatous severe mitral valve regurgitation - Amenable to minimally invasive complex MVRepair - Antithrombotic prophylaxis with full dose ASA alone, pending stability of rhythm - Surveillance of secondary TR per cards Single vessel CAD w anomalous left coronary artery - s/p hybrid revasc of RCA w ARMEN - Secondary prevention w BB/statin/DAPT Acute post-op blood loss anemia - Stable. No transfusions required Postoperative pharyngitis, hoarseness and dysphagia - No issues as per VSS - Continue supportive care History of cryptogenic stroke with residual visual deficit - Stable. No apparent exacerbation. History of paroxysmal SVT - Presence of LINQ - Postop rhythm sinus. AF prophylaxis with BB. DVT prophylaxis - SCDs Disposition - Home this AM Subjective: Feels well. No swallowing issues. Objective: Vital Signs Temp Pulse Resp BP Pulse Ox 36.5 C 90 13 129/66 H 95 12/21/18 04:00 12/21/18 04:00 12/21/18 04:00 12/21/18 04:00 12/21/18 04:00 Laboratory Results 12/19/18 03:45 12/19/18 03:45 12/20/18 12/21/18 12/22/18 05:59 05:59 05:59 Intake Total 0 550 Output Total 2650 600 Balance -2650 -50 Physical Exam - Physical Exam General Appearance: WD/WN, alert, no apparent distress EENT: No scleral icterus (R), No scleral icterus (L) Neck: normal inspection Respiratory: No respiratory distress Cardiac/Chest: regular rate, rhythm Abdomen: non-tender, soft, No distended Skin: normal color, warm/dry Extremities: No pedal edema Neuro/Psych: no motor/sensory deficits, alert, normal mood/affect, oriented x 3 ICD10 Worksheet Patient Problems: Problems Problem Status Onset Acute blood loss anemia Acute S/P MVR (mitral valve repair) Acute Anomalous origin of left coronary artery Chronic CAD in [place] artery Chronic Dyslipidemia Chronic History of stroke Chronic Myxomatous mitral valve regurgitation Chronic
[2018-12-21] MEDS: ATORVASTATIN CALCIUM 40 MG TAB PO SCH (08:17)
[2018-12-21] MEDS: PANTOPRAZOLE SODIUM 40 MG TAB PO SCH (08:17)
[2018-12-21] MEDS: METOPROLOL SUCCINATE XR 25 MG TAB PO SCH (08:17)
[2018-12-21] MEDS: ASPIRIN 325 MG TAB PO SCH (08:17)
[2018-12-21] MEDS: CLOPIDOGREL BISULFATE 75 MG TAB PO SCH ×2 (08:17→08:20)
--- NOTE | 2018-12-21 08:36 | PDDCSUM ---
Discharge Summary Discharge Summary: ADMISSION DATE: 12/17/18 DISCHARGE DATE: 12/21/18 ADMISSION DIAGNOSES 1. Severe mitral valve regurgitation 2. RCA CAD 3. History of cryptogenic stroke with residual visual deficit DISCHARGE DIAGNOSES 1. As above 2. Acute post-op blood loss anemia 3. Postoperative dysarthria and dysphagia d/t pharyngeal edema PROCEDURES 1. 12/17/18 (Nael Peralta): robotic assisted MV repair with resection of the P2 portion of the posterior leaflet, and annuloplasty with a 28 mm Physio ring. HPI 73M with severe MR admitted for elective open heart surgery. HOSPITAL COURSE BY PROBLEM LIST 1. Severe mitral valve regurgitation - amenable to robotic assisted repair. Antithrombotic prophylaxis with full dose ASA alone. 2. Single vessel CAD - s/p PCI with ARMEN. Secondary prevention w BB, statin, ASA , and Plavix. 3. History of cryptogenic stroke with residual visual deficit - stable without exacerbation. 4. Acute post-op blood loss anemia with coagulopathy - stable w/o the need for transfusions. 5. Postoperative dysarthria and dysphagia d/t pharyngeal edema - s/p VFSS. CONSULTANT [employer] VICE PRESIDENT JAGUAR BR[employer] (EX ) comments as follows: Pt demonstrated mild pharyngeal dysphagia c/w decreased epiglottic inversion d/t pharyngeal edema and decreased closure of laryngeal vestibule resulting in trace penetration with thin liquids. Chin tuck and super supraglottic swallow strategies not effective to eliminate penetration. Pt sensation intact and independently able to eject penetrated material. One episode of transient aspiration to which pt was sensate and performed immediate cough and successfully ejected material. Diet recommendations as follows: - Regular texture diet (soft and moist foods), thin liquids, meds whole with liquids - Single sips one at time with use of effortful swallow paired with protective throat clear and re-swallow - Outpatient CONSULT[employer] VICE PRESIDENT JAGUAR [employer] (EX ) services if persistent dysphagia after swelling resolves CONDITION Good DISPOSITION Home, self-care PERTINENT DISCHARGE CLINICAL INFORMATION Vitals: 129/66, 90 SR, 92% on RA Exam: NAD, SR, No respiratory distress, ND, soft, NTP, BLE w/o edema ACTIVITY Pt was instructed on activity limitations and which problems to call Located Within [facility] with. Please see Discharge Plan in chart for specifics. DISCHARGE MEDICATIONS As per Home Medication List in [place] PENDING STUDIES/LABS 1. CXR prior to surgical follow-up FOLLOW-UP 1. Rom Peralta (CT Surgery), 01/07/19, 1:00 PM 2. Julio wKan (Cardiology), to be arranged at surgical f/u
== END 2018-12-21 10:39 | disposition home or self-care (01) | DRG 220 ==
LOC: F3E 12-17 05:42 → F2N 12-17 10:23 → F2W 12-18 13:37
PROVIDERS: ADMIT Thoracic Surgery (Cardiothoracic Vascular Surgery); ATTEND Thoracic Surgery (Cardiothoracic Vascular Surgery)
PROC: 8E0W0CZ Robotic Assisted Procedure of Trunk Region, Open Approach (ICD-10-PCS; principal; 2018-12-17 07:45)
PROC: 02UG0JZ Supplement Mitral Valve with Synthetic Substitute, Open Approach (ICD-10-PCS; principal; 2018-12-17 07:45)
PROC: 5A1221Z Performance of Cardiac Output, Continuous (ICD-10-PCS; principal; 2018-12-17 07:45)
PROC: 027034Z Dilation of Coronary Artery, One Artery with Drug-eluting Intraluminal Device, Percutaneous Approach (ICD-10-PCS; 2018-12-19)
DX: I34.0 Nonrheumatic mitral (valve) insufficiency (principal); D62 Acute posthemorrhagic anemia; D68.9 Coagulation defect, unspecified; I25.10 Atherosclerotic heart disease of native coronary artery without angina pectoris; R47.1 Dysarthria and anarthria; R13.10 Dysphagia, unspecified; I69.398 Other sequelae of cerebral infarction; H53.9 Unspecified visual disturbance; I10 Essential (primary) hypertension; G47.33 Obstructive sleep apnea (adult) (pediatric); Z87.891 Personal history of nicotine dependence
CPT/HCPCS: 82435-PO; 82565-PO; 82947-PO; 82947-QW; 83605-ER; 84132-PO; 84295-PO; 84520-PO; 85014-ER; 92526-GN; 92610-GN; 92611-GN; 97116-GP; 97161-GP; 97166-GO; 97535-GO; C1725; C1769; C1874; C1887; C9600; J0153; J0282; J0583; J0690; J1250; J1265; J1644; J1815; J1940; J2001; J2150; J2250; J2260; J2370; J2405; J2704; J2720; J2765; J2930; J3010; J3475; J3480; P9041; Q9967

== ENCOUNTER → 2019-01-07 | Outpatient (CLI) | payer OTHER, MEDICARE | LOC: FIMAGING 12:07 ==